=== PATIENT | male | born 1985 | race Caucasian/White ===

== ENCOUNTER 2017-02-01 09:09 | Inpatient (IN) | payer SELFPAY ==
[~2017-02-01] VITALS: Ht 185.4 cm; Wt 63.8 kg
[~2017-02-01 09:09] MED LIST: ATARAX OR; BENZ5TA PO; DEPA250T3 OR; DEPA500T OR; DEPA500T2 PO; LAMI25TA OR; NICO14DI3 TD; NICOTINE 21MG/24HR 1 EA TRANSDERMAL TD SCH; PARO25TAB OR; PAXI20TA OR; PAXI40TA OR; PROP20EL OR; RISP1TAB21 PO; RISP2TAB12 OR; TRAZ100T OR; TRAZ150T OR; ZOLO100T PO; ZYPR10TA OR; no home medications
[2017-02-01] MEDS ORDERED: LORazepam 2 MG TAB PO STA (09:35)
[2017-02-01 10:02] LABS: MEAN CORPUSCULAR HEMOGLOBIN 33.3 pg (27.0-33.0); MEAN CORPUSCULAR HGB CONC 33.5 g/dl (32.0-36.5); MEAN CORPUSCULAR VOLUME 99.3 fl (80.0-96.0); RED CELL DISTRIBUTION WIDTH 12.5 % (11.5-14.5); WHITE BLOOD COUNT 5.6 K/mm3 (4.0-10.0)
[2017-02-01 10:40] LABS: ALBUMIN 4.4 GM/DL (3.2-5.2); ALBUMIN/GLOBULIN RATIO 1.33 (1.00-1.93); ALKALINE PHOSPHATASE 55 U/L (45-117); ALT/SGPT 20 U/L (12-78); ANION GAP 7 MEQ/L (8-16); AST/SGOT 28 U/L (15-37); BILIRUBIN,DIRECT 0.1 MG/DL (0.0-0.2); BILIRUBIN,TOTAL 0.4 MG/DL (0.2-1.0); BLOOD UREA NITROGEN 10 MG/DL (7-18); CALCIUM LEVEL 8.6 MG/DL (8.5-10.1); CARBON DIOXIDE LEVEL 29 MEQ/L (21-32); CHLORIDE LEVEL 109 MEQ/L (98-107); CREATININE FOR GFR 0.83 MG/DL (0.70-1.30); GLOMERULAR FILTRATION RATE > 60.0 (>60); GLUCOSE, FASTING 75 MG/DL (70-105); POTASSIUM SERUM 4.4 MEQ/L (3.5-5.1); SODIUM LEVEL 145 MEQ/L (136-145); TOTAL PROTEIN 7.7 GM/DL (6.4-8.2)
[2017-02-01 10:45] LABS: METHADONE URINE NEGATIVE (NEGATIVE)
[2017-02-01] MEDS ORDERED: OXAZEPAM 15 MG CAP PO ONE (18:15)
[2017-02-01] MEDS ORDERED: LORazepam 2 MG TAB PO PRN (18:30)
[2017-02-01] MEDS ORDERED: traZODone 50 MG TAB PO PRN (18:30)
[2017-02-01] MEDS ORDERED: MOM 30ML SUSPENSION UDC PO PRN (18:30)
[2017-02-01] MEDS ORDERED: ACETAMINOPHEN TAB 650MG DOSE (2X325MG) PO PRN (18:30)
[2017-02-01] MEDS ORDERED: MAALOX 30 ML SUSP *UDC PO PRN (18:30)
[2017-02-01] MEDS ORDERED: THIAMINE 100 MG TAB PO ONE (18:45)
[2017-02-01 20:25] VITALS: BP 128/75
[2017-02-01] MEDS ORDERED: diphenhydrAMINE 50 MG CAP PO PRN (22:30)
[2017-02-02 06:00] VITALS: BP 118/82
[2017-02-02] MEDS ORDERED: hydrOXYzine 50 MG TAB PO PRN ×2 (08:45→11:00)
[2017-02-02] MEDS ORDERED: hydrOXYzine 50 MG TAB PO STA (08:46)
--- NOTE | 2017-02-02 08:49 | HPEPDOC ---
Medical History and Physical Date of Admission Feb 01, 2017 at 18:29 History and Physical PCP: None ATTENDING: Dr. Gene Dyer HPI: 31yoM admitted to [facility] for unspecified depressive disorder, being medically examined today. No acute medical complaints today. Denies any fevers, chills, weakness, fatigue, SUMMERS, CP, SOB, cough, palpitations, abdominal pain, N/V /D or changes in bowel or bladder habits. PMHx: Depression Anxiety H/O Alcohol use/substance use insomnia PSHX: Denies SOCHX: Resides in: [place] Marital Status: single Kids: none Employment: [employer] employee Tobacco use: 1 ppd ETOH: 1-2 beers per day (less since Rehab approx 2 years ago) Illicit Drugs: H/o opiates, marijuana. IV Drug Use: Denies Tattoos done unprofessionally: 1 FAMHX: Mother: Alive, DM, HTN Father: Alive, well Siblings: 2 brothers, 2 sisters Alive, well Children: none Unexpected deaths due to medical reasons: None. ROS: As noted in HPI, otherwise 11pt ROS of systems reviewed and unremarkable. PE: GEN: 31yoM, appears stated age. Well-nourished, well developed. No acute distress. Alert and oriented x 3. Pleasant, interactive. HEENT: Normocephalic, atraumatic. Pupils are equal, round, and reactive to light. Extraocular movements are intact. No nystagmus appreciated. Sclera are nonicteric. Conjunctiva without injection. Nose midline. Nasal turbinates without bogginess. EACs both patent BL. TMs both visualized and kemp with good cone of light, no bulging or erythema. No facial asymmetry. Moist mucous membranes. Dentition fair. Pharynx pink and moist, no cobblestoning. Neck supple , trachea midline. No lymphadenopathy or thyromegaly appreciated. CHEST: Regular rate and rhythm, +S1, +S2 LUNGS: Clear to auscultation bilaterally. No wheezes, rales, or rhonchi. Breathing appears symmetric and easy. Patient is speaking in full sentences. No accessory muscle use. ABD: Round, soft, non-tender, non-distended. +Bowel sounds throughout. No rebound or guarding. No costovertebral angle tenderness. EXT: Pulses 2+ bilaterally dorsalis pedis and radial. No lower extremity edema appreciated. SKIN: [place], dry, warm. Capillary refill <2sec. No rashes. NEURO: Alert and oriented x 3. Cranial nerves III-XII are intact. No focal deficits appreciated. EKG: pending. A&P: 31yoM admitted to [facility] for unspecified depressive disorder, 1. Psych. Plan per Psychiatry. Obtain baseline EKG to assure the safety of psychiatric medications as they can prolong the QT interval. 2. Nicotine dependence. Patch available. 3. Tattoo done unprofessionally. Pt agreeable to HIV/Hepatitis screening. 4. Follow up. No Primary Care Provider. Will attempt to establish PCP on discharge. 5. Substance use. Per Psychiatry. 6. Staff member Florentin present throughout exam. Vital Signs Vital Signs Date Time Temp Pulse Resp B/P (MAP) Pulse Ox O2 Delivery O2 Flow Rate FiO2 02/02/17 06:00 98.8 91 16 118/82 (94) 02/01/17 20:25 96 Room Air Laboratory Data Labs 24H Laboratory Tests 2 02/01/17 09:47: Anion Gap 7L, Glomerular Filtration Rate > 60.0, Calcium Level 8.6, Aspartate Amino Transf (AST/SGOT) 28, Alanine Aminotransferase (ALT/SGPT) 20, Alkaline Phosphatase 55, Total Bilirubin 0.4, Direct Bilirubin 0.1, Total Protein 7.7, Albumin 4.4, Albumin/Globulin Ratio 1.33, Thyroid Stimulating Hormone (TSH) 1.510, Salicylates Level 3.5L, Urine Amphetamines Screen NEGATIVE, Urine Benzodiazepines Screen NEGATIVE, Urine Opiates Screen NEGATIVE, Urine Methadone Screen NEGATIVE, Acetaminophen Level < 2.0L, Urine Barbiturates Screen NEGATIVE , Urine Phencyclidine Screen NEGATIVE, Urine Cocaine Metabolite Screen NEGATIVE , Urine Cannabinoids Screen POSITIVEH, Ethyl Alcohol Level 0.367H 02/01/17 16:00: Ethyl Alcohol Level 0.160H CBC/BMP Laboratory Tests 02/01/17 09:47 Red Blood Count 5.02, Mean Corpuscular Volume 99.3 H, Mean Corpuscular Hemoglobin 33.3 H, Mean Corpuscular Hemoglobin Concent 33.5, Red Cell Distribution Width 12.5 Home Medications No Active Prescriptions or Reported Meds Allergies Coded Allergies: No Known Drug Allergy (Verified Allergy, Unknown, 11/14/12) Maya Wadsworth Feb 02, 2017 08:49
[2017-02-02] MEDS ORDERED: ESCITALOPRAM OXALATE 10 MG TAB (LEXAPRO) PO SCH (09:00)
[2017-02-02] MEDS ORDERED: OLANZapine 5 MG TAB PO SCH (09:00)
[2017-02-02] MEDS: THIAMINE 100 MG TAB PO SCH ×2 (09:01→20:30)
[2017-02-02] MEDS: FOLIC ACID 1 MG TAB PO SCH (09:01)
[2017-02-02] MEDS: NICOTINE 21MG/24HR 1 EA TRANSDERMAL TD SCH (09:01)
[2017-02-02] MEDS: MULTIVITAMINS/MINERALS THERAP 1 TAB PO SCH (09:01)
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
[2017-02-02 18:00] VITALS: BP 142/86
[2017-02-02] MEDS ORDERED: OXAZEPAM 15 MG CAP PO ONE (18:00)
[2017-02-02] MEDS ORDERED: RAMELTEON 8 MG TAB (ROZEREM) PO SCH (21:00)
[2017-02-03 06:23] VITALS: BP 123/89
[2017-02-03] MEDS: SERTRALINE HCL 50 MG TAB PO SCH (08:29)
[2017-02-03] MEDS: FOLIC ACID 1 MG TAB PO SCH (08:29)
[2017-02-03] MEDS: NICOTINE 21MG/24HR 1 EA TRANSDERMAL TD SCH (08:29)
[2017-02-03] MEDS: MULTIVITAMINS/MINERALS THERAP 1 TAB PO SCH (08:29)
[2017-02-03] MEDS: THIAMINE 100 MG TAB PO SCH ×2 (08:29→20:34)
[2017-02-03] MEDS: OLANZapine 5 MG TAB PO PRN ×3 (10:35→20:34)
[2017-02-03 12:00] VITALS: BP 125/88
[2017-02-03 18:28] VITALS: BP 129/84
[2017-02-03] MEDS ORDERED: QUEtiapine FUMARATE 100 MG TAB PO SCH (21:00)
--- NOTE | 2017-02-04 00:18 | IPN ---
DATE: 02/03/2017 Evaluated 31-year-old male known for borderline personality disorder, major depressive disorder and alcohol and marijuana use disorder. The patient was admitted to the inpatient mental health unit because he stated that he wanted to kill himself and he called a co-worker, this co-worker called the police, the police picked him up and brought him into the emergency room. In the emergency room (ER), he was found to be intoxicated with alcohol and he admitted that he had been drinking the whole day before he was brought in. The patient has a long standing history of substance abuse, psychiatric disorder and previous admissions to the inpatient mental health unit, being the last one in 2012 when he was diagnosed as having impulse control disorder and substance abuse. His vital signs were stable today. There were no new lab results. CURRENT MEDICATIONS: He is on Abilify, Rozerem 8 mg by mouth at bedtime (q.h.s.), but he stated that he did not feel that it was working, so he was placed on the quetiapine 100 mg by mouth at bedtime (q.h.s.) for insomnia and he has Zyprexa 5 mg by mouth every 4 hours as needed for anxiety and agitation and besides he is on CIWA protocol. MENTAL STATUS EXAMINATION: The patient is a 31-year-old male who is alert, oriented times three, cooperative with interview and pleasant with good eye contact, dressed in hospital clothes wearing a elisabet because he states he feels very cold. Speech is fluent, not tangential and not circumstantial. Language skills are fair. Thought process is linear, logical. Thought content is goal directed. Abstract reasoning and computation are fair. Description of associations. There is no loosening of associations. Judgment poor. Insight poor. Orientation: He is oriented times three. Recent and remote memory are fair. Attention and concentration are fair. Language: Normal, fluent. Fund of knowledge: Fair. Mood: "I still get very angry". Affect is labile. He goes from sadness to anger to laughter. DIAGNOSES: 1. Borderline personality disorder. 2. Major depressive disorder with suicidal ideation. 3. Marijuana and alcohol use disorder. 4. Unspecified trauma. ASSESSMENT: The patient is still very depressed, but at least he laughs a little bit more. He is less angry than yesterday. He reported today that he felt very angry after he talked to his mother over the phone and they got into an argument. After this incident, he requested a as needed medication, Zyprexa 5 mg and he said that even though he helped him calm down, he felt that he was still very angry. This abstract writer reassured him that with more use of this medications and letting them enough time to work, he will feel more relieved. The patient has multiple social problems because he has no social or family support. He has no insurance coverage. According to the patient, he spoke with his boss last night and he told him that he was going to be covered with the work insurance. He says that at least this gives him a little bit of hope, although he knows that he is going to be tighter economically speaking. MANAGEMENT PLAN: He will continue to be on the same medications: Seroquel 100 mg by mouth at bedtime (q.h.s.) because he says that trazodone does not work for him and last night that he took Rozerem 8 mg by mouth at bedtime (q.h.s.) he kept tossing, turning and waking up. Once he becomes more stable, Seroquel will be discontinued because it is not good for him to be on three different anti psychotic medications.He is on Zyprexa as needed for anxiety and agitation because of his substance use disorder and this abstract writer did not want to give him Ativan for that reason and because he has anger problems,this abstract writer thought that Zyprexa could help him control anxiety and anger. TIME SPENT: 40 minutes. ROYA
--- NOTE | 2017-02-04 00:53 | ECGEPIP ---
Stationary ECG Study [facility] Test Date: 2017-02-02 Pat Name: CARLOS MURPHY Department: Room: [place] [address] Gender: M Surgical Services Assistant: ANUP : 1985 Requested By: Maya Wadsworth Order Number: [id number] Reading MD: Aly Peralta Measurements Intervals [place] Rate: 62 P: 45 MT: 138 QRS: 59 QRSD: 88 T: 73 QT: 394 QTc: 402 Interpretive Statements SINUS RHYTHM ST ELEVATION, PROBABLY EARLY REPOLARIZATION Compared to the last tracing on 08/02/2013 at 15:05:04 Electronically Signed On 02-04-2017 0:52:49 EDT by Aly Peralta
[2017-02-04 06:25] VITALS: BP 132/95
[2017-02-04] MEDS: SERTRALINE HCL 50 MG TAB PO SCH (08:09)
[2017-02-04] MEDS: MULTIVITAMINS/MINERALS THERAP 1 TAB PO SCH (08:10)
[2017-02-04] MEDS: FOLIC ACID 1 MG TAB PO SCH (08:10)
[2017-02-04] MEDS: THIAMINE 100 MG TAB PO SCH (08:10)
[2017-02-04] MEDS: NICOTINE 21MG/24HR 1 EA TRANSDERMAL TD SCH (08:11)
[2017-02-04] MEDS ORDERED: hydrOXYzine 50 MG TAB PO PRN (12:00)
[2017-02-04] MEDS: risperiDONE 1 MG TAB PO SCH ×2 (12:27→21:45)
[2017-02-04 18:00] VITALS: BP 128/81
[2017-02-04] MEDS: diphenhydrAMINE 50 MG CAP PO SCH (21:45)
--- NOTE | 2017-02-05 01:54 | IPN ---
DATE OF SERVICE: 02/04/2017 A 31-year-old male with history of borderline personality disorder, major depressive disorder, marijuana and alcohol use disorder. Patient reported today that he was extremely angry yesterday with his mother after he spoke to her on the phone and then he received her visit during the night, but he says that his visit went well with his father and he feels supported by him and by his paternal side of the family. Patient reported that despite he received medication last night for sleep which was Seroquel 100 mg by mouth nightly, he kept tossing, turning and was not able to sleep just like the night before. He expressed his concerns about his insurance because high school social studies teacher explained that he will not be able to have insurance from his job until his enrollment that it will be after this year of work and he expressed his surprise about this because he said he had spoken with his boss yesterday and he had reassured him that he will have insurance. For that reason, his medications had to be changed today and Abilify was discontinued because most likely he will not be able to afford that medication and instead he was started on Risperdal 1 mg twice a day because this medication is more affordable and he will be able to get it for a cheaper rodriguez if he is not covered by any insurance. Olanzapine or Zyprexa was also discontinued because he will probably also have problems picking up his medication and buying these medications and for that reason he was started on a different medication for anxiety and agitation, which is Atarax 50 mg by mouth every 6 hours as needed for anxiety and agitation. Since he is receiving Risperdal, he was started also on Benadryl 50 mg by mouth nightly, which will help him in case he will develop extrapyramidal side effects and it will help him also with sleep. He continues with sertraline, but this one was decreased to 25 mg by mouth daily because the patient has some bipolar traits and it could be that sertraline is activating jesse in him, for that reason the medication was decreased. He expressed that he got upset with his mother during the visit last night, but after that he was able to relax and he went to sleep. He was able to sleep for a little while and then he got up and woke up several times. He reports that he is feeling a little bit less depressed, that he has been attending groups and he has found them very useful, that he has been interacting with peers and staff and he feels that he is receiving the help that was lacking in his life. It helped him the support that he needed. MENTAL STATUS EXAMINATION: He was alert, oriented times three, dressed in hospital clothes, wearing glasses, with good eye contact, good hygiene. His speech is normal, not tangential and not circumstantial. His thought process is coherent. His thought content is goal directed. Abnormal or psychotic thoughts: He denies suicidal ideation, denies auditory and visual hallucinations. Denies paranoid or bizarre thought delusions. His attention and concentration are fair. His remote and recent memory are intact. He is oriented times three, his insight and judgment are improving. His language is fair, his mood and affect are brighter today. ASSESSMENT: Patient has improved since he was admitted, he has a brighter mood and affect, he laughs, he interacts, he has better eye contact than before, he is less angry. He has gone through several medication adjustments today because of his insurance problems and if these medications were not adjusted, he will have had problems upon discharge on being able to buy them. Patient will be continued under close observation and hopefully he will stabilize so that he will be able to go back to work because he is worried about losing his job. Will followup.
[2017-02-05 06:30] VITALS: BP 155/97
[2017-02-05] MEDS: risperiDONE 1 MG TAB PO SCH ×3 (08:30→21:00)
[2017-02-05] MEDS: FOLIC ACID 1 MG TAB PO SCH (08:30)
[2017-02-05] MEDS: MULTIVITAMINS/MINERALS THERAP 1 TAB PO SCH (08:30)
[2017-02-05] MEDS: NICOTINE 21MG/24HR 1 EA TRANSDERMAL TD SCH (08:31)
[2017-02-05] MEDS ORDERED: SERTRALINE HCL 50 MG TAB PO SCH (09:00)
[2017-02-05] MEDS: hydrOXYzine 50 MG TAB PO PRN ×2 (15:59→21:00)
[2017-02-05 18:00] VITALS: BP 121/78
[2017-02-05] MEDS: diphenhydrAMINE 50 MG CAP PO SCH (21:00)
--- NOTE | 2017-02-05 23:09 | MHIPNPDOC ---
[facility] Progress Note Progress Note DATE OF SERVICE: 02/05/17 HISTORY: 31 year old male with history of Borderline Personality Disorder, Unspecified Bipolar Disorder, alcohol and Marijuana Use Disorder who has had a good response to Risperdal and Atarax. VITAL SIGNS: See below. NEW TEST RESULTS: No new test results CURRENT MEDICATIONS: See below. MENTAL STATUS EXAMINATION: Patient is a 31-year old male, who is alert, cooperative, pleasant. Speech: Is normal, a little rapid. Language skills are fair. Thought processes including: intact. Thought content: he has anxious thoughts about going back to work and about his health insurance Abstract reasoning, and computation: Fair. Description of associations: Not loose. Description of abnormal or psychotic thoughts: Denies suicidal ideation, denies homicidal ideation, denies auditory and visual hallucinations and denies delusional thoughts. Judgment: Improving Insight: Improving. Orientation: Oriented x 3. Recent and remote memory: Intact. Attention span and concentration: Fair. Language: Fair. Fund of knowledge: Adequate. Mood: "I feel much better". Affect: Reactive, appropriate, full range. Mood congruent. DIAGNOSES: 1. Borderline Personality Disorder. 2. Unspecified Bipolar Disorder. 3. Alcohol and marijuana use disorder. ASSESSMENT:patient has improved, will observe closely over the weekend. If he remains stable, could be discharged on Wednesday. MANAGEMENT PLAN: Needs to continue at the [facility] until he remains stable. TIME SPENT: 30 minutes. Vital Signs Vital Signs Date Time Temp Pulse Resp B/P (MAP) Pulse Ox O2 Delivery O2 Flow Rate FiO2 02/05/17 18:00 99.3 124 16 121/78 (92) 02/03/17 06:23 Room Air 02/01/17 20:25 96 Current Medications Current Medications Acetaminophen (Tylenol Tab) 650 mg Q6HP PRN PO HEADACHE or DISCOMFORT; Start at 18:30; Stop 03/03/17 at 18:29 Al Hydrox/Mg Hydrox/Simethicone (Mylanta) 30 ml Q4HP PRN PO HEARTBURN/ INDIGESTION; Start 02/01/17 at 18:30; Stop 03/03/17 at 18:29 Aripiprazole (AbiLIFY) 5 mg BID PO Last administered on 02/04/17t 08:09; Start 02/02/17 at 21:00; Stop 02/04/17 at 10:54; Status DC Diphenhydramine HCl (Benadryl) 50 mg QHS PO Last administered on 02/05/17 21: 00; Start 02/04/17 at 21:00; Stop 03/06/17 at 20:59 Diphenhydramine HCl (Benadryl) 50 mg QHSP PRN PO INSOMNIA Last administered on 02/01/17 22:29; Start 02/01/17 at 22:30; Stop 02/02/17 at 09:38; Status DC Escitalopram Oxalate (Lexapro) 20 mg DAILY PO Last administered on 02/02/17 09 :01; Start 02/02/17 at 09:00; Stop 02/02/17 at 10:31; Status DC Folic Acid (Folic Acid) 1 mg DAILY PO Last administered on 02/05/17 08:30; Start 02/02/17 at 09:00; Stop 03/04/17 at 08:59 Home Med (Med Rec Complete!) ASDIRECTED XX ; Start 02/01/17 at 19:00; Stop at 19:08; Status DC Hydroxyzine HCl (Atarax) 50 mg Q4HP PRN PO ANXIETY Last administered on 21:00; Start 02/05/17 at 12:00; Stop 03/06/17 at 11:59 Hydroxyzine HCl (Atarax) 50 mg Q6HP PRN PO ANXIETY; Start 02/02/17 at 08:45; Stop 03/04/17 at 08:44; Status Cancel Hydroxyzine HCl (Atarax) 50 mg Q6HP PRN PO ANXIETY; Start 02/02/17 at 11:00; Stop 03/04/17 at 10:59; Status UNV Hydroxyzine HCl (Atarax) 50 mg Q6HP PRN PO ANXIETY Last administered on 15:34; Start 02/04/17 at 12:00; Stop 02/05/17 at 10:15; Status DC Hydroxyzine HCl (Atarax) 50 mg STAT STAT PO Last administered on 02/02/17 09: 01; Start 02/02/17 at 08:46; Stop 02/02/17 at 08:53; Status DC Lorazepam (Ativan) 2 mg ASDIRECTED PRN PO SEE PROTOCOL Last administered on 20:26; Start 02/01/17 at 18:30; Stop 02/08/17 at 18:29 Lorazepam (Ativan) 2 mg STAT STAT PO Last administered on 02/01/17 09:42; Start 02/01/17 at 09:35; Stop 02/01/17 at 09:36; Status DC Magnesium Hydroxide (Milk Of Magnesia) 30 ml DAILYPRN PRN PO CONSTIPATION; Start 02/01/17 at 18:30; Stop 03/03/17 at 18:29 Multivitamins (Theragram-M) 1 tab DAILY PO Last administered on 02/05/17 08:30 ; Start 02/02/17 at 09:00; Stop 03/04/17 at 08:59 Nicotine (Nicoderm Cq 21mg) 1 patch DAILY TD ; Start 02/01/17 at 09:00; Stop at 22:22; Status DC Nicotine (Nicoderm Cq 21mg) 1 patch DAILY TD Last administered on 02/05/17 08: 31; Start 02/02/17 at 09:00; Stop 03/04/17 at 08:59 Olanzapine (ZyPREXA) 5 mg BID PO Last administered on 02/02/17 10:51; Start at 09:00; Stop 02/02/17 at 10:58; Status DC Olanzapine (ZyPREXA) 5 mg Q4HP PRN PO ANXIETY/AGITATION Last administered on 20:34; Start 02/03/17 at 09:00; Stop 02/04/17 at 10:56; Status DC Quetiapine Fumarate (SEROquel) 100 mg QHS PO Last administered on 02/03/17 20: 34; Start 02/03/17 at 21:00; Stop 02/04/17 at 10:53; Status DC Ramelteon (Rozerem) 8 mg QHS PO Last administered on 02/02/17 20:29; Start at 21:00; Stop 02/03/17 at 15:11; Status DC Risperidone (RisperDAL) 1 mg BID PO Last administered on 02/05/17 08:30; Start 02/04/17 at 09:00; Stop 02/05/17 at 10:16; Status DC Risperidone (RisperDAL) 1 mg TID PO Last administered on 02/05/17 21:00; Start 02/05/17 at 16:00; Stop 03/06/17 at 08:59 Sertraline HCl (Zoloft) 12.5 mg DAILY PO ; Start 02/06/17 at 09:00; Stop at 08:59 Sertraline HCl (Zoloft) 25 mg DAILY PO Last administered on 02/05/17 08:30; Start 02/05/17 at 09:00; Stop 02/05/17 at 10:14; Status DC Sertraline HCl (Zoloft) 50 mg DAILY PO Last administered on 02/04/17 08:09; Start 02/03/17 at 09:00; Stop 02/04/17 at 10:37; Status DC Thiamine HCl (Thiamine HCl) 100 mg BID PO Last administered on 02/04/17 08:10 ; Start 02/02/17 at 09:00; Stop 02/04/17 at 09:01; Status DC Trazodone HCl (Desyrel) 50 mg QHSP PRN PO INSOMNIA; Start 02/01/17 at 18:30; Stop 02/01/17 at 22:20; Status DC Allergies Coded Allergies: No Known Drug Allergy (Verified Allergy, Unknown, 11/14/12) DONALD CHING MD Feb 05, 2017 23:09
[2017-02-06 06:00] VITALS: BP 140/96
[2017-02-06] MEDS: MULTIVITAMINS/MINERALS THERAP 1 TAB PO SCH (08:26)
[2017-02-06] MEDS: risperiDONE 1 MG TAB PO SCH ×3 (08:26→20:03)
[2017-02-06] MEDS: FOLIC ACID 1 MG TAB PO SCH (08:27)
[2017-02-06] MEDS: hydrOXYzine 50 MG TAB PO PRN ×2 (08:27→13:12)
[2017-02-06] MEDS: SERTRALINE HCL 25 MG TABLET PO SCH (08:29)
[2017-02-06] MEDS: NICOTINE 21MG/24HR 1 EA TRANSDERMAL TD SCH (08:29)
[2017-02-06 18:00] VITALS: BP 128/83
[2017-02-06] MEDS: diphenhydrAMINE 50 MG CAP PO SCH (20:03)
[2017-02-07 06:00] VITALS: BP 134/86
[2017-02-07] MEDS: NICOTINE 21MG/24HR 1 EA TRANSDERMAL TD SCH (08:12)
[2017-02-07] MEDS: SERTRALINE HCL 25 MG TABLET PO SCH (08:13)
[2017-02-07] MEDS: risperiDONE 1 MG TAB PO SCH ×3 (08:13→21:19)
[2017-02-07] MEDS: FOLIC ACID 1 MG TAB PO SCH (08:13)
[2017-02-07] MEDS: hydrOXYzine 50 MG TAB PO PRN ×3 (08:13→20:01)
[2017-02-07] MEDS: MULTIVITAMINS/MINERALS THERAP 1 TAB PO SCH (08:13)
[2017-02-07 18:00] VITALS: BP 139/92
[2017-02-07] MEDS: diphenhydrAMINE 50 MG CAP PO SCH (21:19)
[2017-02-08 06:24] VITALS: BP 149/79
[2017-02-08] MEDS: hydrOXYzine 50 MG TAB PO PRN (08:06)
[2017-02-08] MEDS: SERTRALINE HCL 25 MG TABLET PO SCH (08:06)
[2017-02-08] MEDS: FOLIC ACID 1 MG TAB PO SCH (08:06)
[2017-02-08] MEDS: risperiDONE 1 MG TAB PO SCH (08:06)
[2017-02-08] MEDS: MULTIVITAMINS/MINERALS THERAP 1 TAB PO SCH (08:06)
[2017-02-08 08:09] VITALS: BP 131/88
[2017-02-08] MEDS: NICOTINE 21MG/24HR 1 EA TRANSDERMAL TD SCH (09:00)
[2017-02-08] MEDS ORDERED: RISP1TAB41 PO (09:55)
[2017-02-08] MEDS ORDERED: DIPH50CA PO (09:55)
[2017-02-08] MEDS ORDERED: NICO21PAT TD (09:55)
[2017-02-08] MEDS ORDERED: SERT25TA PO (09:55)
[2017-02-08] MEDS ORDERED: HYDR-4274 PO (09:58)
[2017-02-08] MEDS ORDERED: hydrOXYzine 50 MG TAB PO SCH (12:00)
--- NOTE | 2017-02-09 10:51 | DSES ---
DATE OF ADMISSION: 02/01/2017 DATE OF DISCHARGE: 02/08/2017 DISCHARGE DIAGNOSES: 1. Borderline personality disorder. 2. Major depressive disorder, moderate, recurrent. 3. Alcohol and marijuana use disorder. REASON FOR ADMISSION: Patient was brought to the emergency room while under the influence of alcohol and he had verbalized that he wanted to kill himself. Patient says that he has had multiple psychosocial stressors including work related issues, financial strains, transportation problems, and a history of legal problems that has been like the reason of why he is so depressed these days. Two years ago approximately, he had a DWI and he lost his license because of that and for that reason, he has not been able to drive a car so he has to use his bicycle everyday to go to work and pay his neighbor 20 to 30 dollars for the ride. He recently lost one of the tires, got a flat tire and has not been able to repair his bike. This was the trigger exactly that brought him down to depression. Patient has had previous history of alcohol use disorder, marijuana use disorder, and on a previous hospitalization in 2010 it was stated that he also had a problem with opioids. Patient has responded to treatment and he has been treated with Risperdal because it was considered that he has borderline personality disorder and he needed a mood stabilizer and he needed to control his impulses because he has been harming himself by burning his arm and his hand. 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 As it was stated before, he was placed on Risperdal 1 mg by mouth three times daily and he has been receiving hydroxyzine 50 mg by mouth every 6 hours for anxiety or agitation, he received a nicotine patchy of 21 mg in 24 hours one patch a day for smoking cessation and recently sertraline was added at 12.5 mg by mouth daily. Patient was not a stable protocol because he was withdrawing from alcohol when he was admitted. Patient had a very good response to this combination of medications and was discharged today. He received a letter for him to hand it to his boss so that they could see that he had been hospitalized. His father was contacted and his mother and today there was a family meeting with his father and his father was able to realize that his son has much more than a substance use disorder, that he has been depressed and has personality disorder due to the rough childhood that he had to endure. At the time of discharge, the patient was stable, he did not endorse any suicidal or homicidal ideation, not psychotic thoughts, denied auditory and visual hallucinations, and denied delusional thoughts. His mood and effect were euthymic, he was alert and oriented times three with an intact thought process and coherent thought content. His attention, concentration, memory were good. Insight and judgment have improved. Impulse control was normal. The patient has received instructions to followup as an outpatient and receive psychotherapy and medications at the following facilities: He is going to followup for [facility] and walk in hours for [facility] addictions. Patient was discharged, his father came to pick him up and he was satisfied with his followup appointments, he is willing to quit drinking and smoking marijuana and he is goal directed. He wants to improve and get better.
== END 2017-02-08 11:30 | disposition home or self-care (01) | DRG 752 ==
LOC: M ED 10:03 → M ED INP 18:29 → M PSY 20:24
PROVIDERS: ADMIT Psychiatry & Neurology Psychiatry; ATTEND Psychiatry & Neurology Psychiatry
DX: F60.3 Borderline personality disorder (principal); F10.129 Alcohol abuse with intoxication, unspecified; F33.1 Major depressive disorder, recurrent, moderate; G47.00 Insomnia, unspecified; F17.210 Nicotine dependence, cigarettes, uncomplicated; F12.10 Cannabis abuse, uncomplicated; Z91.5 Personal history of self-harm

== ENCOUNTER 2018-11-10 14:21 | Inpatient (IN) | payer BC, SELFPAY ==
[~2018-11-10] VITALS: Ht 185.4 cm; Wt 64.1 kg
[~2018-11-10 14:21] MED LIST changes: +DIPH50CA PO; +HYDR50TA70 PO; +NICO21PAT TD; -NICOTINE 21MG/24HR 1 EA TRANSDERMAL TD SCH; +RISP1TAB42 PO; +SERT25TA85 PO
[2018-11-10] MEDS ORDERED: LORazepam 2 MG TAB PO PRN (15:30)
[2018-11-10] MEDS ORDERED: ADACEL/BOOSTRIX VACCINE (DIPHTH/PERTUSS/ACELL/TETANUS)0.5ML SYR (90715) IM ONE (15:30)
[2018-11-10 16:03] LABS: HEMATOCRIT 47.8 % (42.0-52.0); HEMOGLOBIN 16.1 g/dl (13.5-17.5); MEAN CORPUSCULAR HEMOGLOBIN 33.5 pg (27.0-33.0); MEAN CORPUSCULAR HGB CONC 33.7 g/dl (32.0-36.5); MEAN CORPUSCULAR VOLUME 99.6 fl (80.0-96.0); PLATELET COUNT, AUTOMATED 227 10^3/uL (150-450); WHITE BLOOD COUNT 10.3 10^3/uL (4.0-10.0)
[2018-11-10 16:27] LABS: AMPHETAMINES LEVEL URINE NEGATIVE (NEGATIVE); BARBITURATES URINE NEGATIVE (NEGATIVE); BENZODIAZEPINES URINE NEGATIVE (NEGATIVE); CANNABINOIDS URINE POSITIVE (NEGATIVE); COCAINE METABOLITE URINE NEGATIVE (NEGATIVE); METHADONE URINE NEGATIVE (NEGATIVE); OPIATES URINE NEGATIVE (NEGATIVE); PHENCYCLIDINE URINE NEGATIVE (NEGATIVE)
[2018-11-10 16:41] LABS: ACETAMINOPHEN LEVEL < 2.0 UG/ML (10.0-30.0); ALBUMIN 4.5 GM/DL (3.2-5.2); ALT/SGPT 31 U/L (12-78); BILIRUBIN,DIRECT < 0.1 MG/DL (0.0-0.2); BILIRUBIN,TOTAL 0.2 MG/DL (0.2-1.0); BLOOD UREA NITROGEN 9 MG/DL (7-18); CALCIUM LEVEL 8.1 MG/DL (8.5-10.1); CARBON DIOXIDE LEVEL 23 MEQ/L (21-32); CHLORIDE LEVEL 112 MEQ/L (98-107); CREATININE FOR GFR 0.85 MG/DL (0.70-1.30); ETHYL ALCOHOL (ETHANOL) 0.299 % (0.000-0.010); GLOMERULAR FILTRATION RATE > 60.0 (>60); GLUCOSE, FASTING 75 MG/DL (70-100); SALICYLATE LEVEL 5.6 MG/DL (5.0-30.0); SODIUM LEVEL 145 MEQ/L (136-145); THYROID STIMULATING HORMONE 0.728 uIU/ML (0.358-3.740); TOTAL PROTEIN 7.6 GM/DL (6.4-8.2)
[2018-11-10] MEDS: THIAMINE 100 MG TAB PO SCH (17:30)
[2018-11-10] MEDS: MULTIVITAMINS/MINERALS THERAP 1 TAB PO SCH (17:30)
[2018-11-10] MEDS: FOLIC ACID 1 MG TAB PO SCH (17:30)
[2018-11-10] MEDS ORDERED: THIAMINE 100 MG TAB PO SCH (21:00)
[2018-11-11] MEDS ORDERED: traZODone 50 MG TAB PO PRN (13:00)
[2018-11-11] MEDS ORDERED: MOM 30ML SUSPENSION UDC PO PRN (13:00)
[2018-11-11] MEDS ORDERED: ACETAMINOPHEN TAB 650MG DOSE (2X325MG) PO PRN (13:00)
[2018-11-11] MEDS ORDERED: IBUPROFEN 400 MG TAB PO PRN (13:00)
[2018-11-11] MEDS: FOLIC ACID 1 MG TAB PO SCH (13:49)
[2018-11-11] MEDS: THIAMINE 100 MG TAB PO SCH ×2 (13:49→22:32)
[2018-11-11] MEDS: NICOTINE 21MG/24HR 1 EA TRANSDERMAL TD SCH (13:49)
[2018-11-11] MEDS: MULTIVITAMINS/MINERALS THERAP 1 TAB PO SCH (13:49)
[2018-11-11 14:23] VITALS: BP 150/95
[2018-11-11 18:00] VITALS: BP 133/88
--- NOTE | 2018-11-11 18:23 | REP ---
Clinical: Trauma. Technique: AP, lateral, bilateral oblique views left hand . Findings: The osseous structures and joint spaces are intact and normal. There is no evidence for acute fracture or dislocation. Surrounding soft tissues are unremarkable. No subcutaneous emphysema or radiodense foreign body. Impression: No acute fracture or dislocation. Electronically Signed by Fritz Nielsen MD 11/11/2018 06:14 P
[2018-11-12 08:00] VITALS: BP 119/78
[2018-11-12] MEDS ORDERED: LORazepam 2 MG TAB PO STA (08:22)
[2018-11-12] MEDS: NICOTINE 21MG/24HR 1 EA TRANSDERMAL TD SCH (08:36)
[2018-11-12] MEDS: MULTIVITAMINS/MINERALS THERAP 1 TAB PO SCH (08:36)
[2018-11-12] MEDS: THIAMINE 100 MG TAB PO SCH ×2 (08:36→21:09)
[2018-11-12] MEDS: FOLIC ACID 1 MG TAB PO SCH (08:36)
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
[2018-11-12] MEDS: VENLAFAXINE 37.5 MG TAB PO SCH (12:35)
[2018-11-12 16:00] VITALS: BP 120/68
[2018-11-12 18:36] VITALS: BP 120/68
[2018-11-12 19:42] VITALS: BP 118/68
[2018-11-12] MEDS: BACITRACIN OINT 30GM TOP SCH (21:00)
[2018-11-12] MEDS ORDERED: OLANZapine 10 MG TAB PO SCH (21:00)
[2018-11-12] MEDS ORDERED: QUEtiapine FUMARATE 50 MG TAB PO SCH (21:00)
[2018-11-13 06:41] VITALS: BP 99/67
[2018-11-13 08:00] VITALS: BP 99/67
[2018-11-13] MEDS: NICOTINE 21MG/24HR 1 EA TRANSDERMAL TD SCH (08:59)
[2018-11-13] MEDS: VENLAFAXINE 37.5 MG TAB PO SCH (08:59)
[2018-11-13] MEDS: THIAMINE 100 MG TAB PO SCH (08:59)
[2018-11-13] MEDS: FOLIC ACID 1 MG TAB PO SCH (08:59)
[2018-11-13] MEDS: MULTIVITAMINS/MINERALS THERAP 1 TAB PO SCH (08:59)
[2018-11-13] MEDS: BACITRACIN OINT 30GM TOP SCH ×2 (09:00→21:00)
--- NOTE | 2018-11-13 15:15 | MHIPNPDOC ---
[facility] Progress Note Progress Note DATE OF SERVICE: 11/13/18 HISTORY: CHIEF COMPLAINT: "i want to give up" HISTORY OF PRESENT ILLNESS: Patient is a 33-year-old male, who according to ED reports: "Reason for Referral Pt called hotline and expressed SI, has prior psych hx and admissions to [facility]. Chief Complaint Pt has hx of depression, sattes he was at work yesterday and was feeling hopeless "about everything in my life", so he cut self on his arm. Pt was sent home from work and started to drink, called suicide hotline and expressed SI with plans to shoot self or run out into traffic. Pt also stated he was thinking of "suicide by helicopter repairer" for when the Police would respond to his home, adds that he has had several instances of SI in past with thoughts of shooting self. Pt is vague/guarded about stressors, repeats "everything in my life", currently lives alone, has mother nearby for support. Pt denies HI, denies AH/VH, admits to occasional cannabis and usually drinks "a beer after work every day", admits he drank more than usual yesterday due to his depression. [facility], no longer taking medications, c/o poor sleep/concentration. Pt is clinically sober at tgis time, continues to voice feeling depressed/hopeless with SI." VITAL SIGNS: See below. NEW TEST RESULTS: See below CURRENT MEDICATIONS: See below. MENTAL STATUS EXAMINATION: General appearance: Patient is a 31-year old male, who is alert, cooperative with interview, with good eye contact, dressed in hospital clothes. Speech: Fluent, spontaneous, not circumstantial and not tangential. Thought processes: Intact. Thought content: cognitive distortions, anxious and depressive thoughts. He doesn't think he wants to go back home, he perseveres about that. He would consider moving to [place] because he thinks there are more opportunities here in [place], he thinks he could get a house with his mother if they buy a house together, the commute would be easier. Abstract reasoning and computation: Fair. Description of associations: Not loose. Description of abnormal or psychotic thoughts: He admits to have auditory hallucinations once in a while and reports hearing a voice calling his name but he is not hearing voices at this time. He denies visual hallucinations, denies homicidal ideation but admits suicidal thoughts. Judgment: Poor. Insight: Limited Orientation: Oriented 3. Recent and remote memory: Intact. Attention span and concentration: Fair Fund of knowledge: Adequate. Mood: "I feel very confused at this time" Affect: Depressed, irritable, anxious DIAGNOSES: 1. Borderline personality disorder. 2. Alcohol and marijuana use disorder. 3. Unspecified bipolar disorder. ASSESSMENT: Patient says he tried to hurt himself early this morning and he scratched his arm but then, he realized that he was doing it once again. he says it relieves him immediately but then, the scar becomes a reminder of it, he becomes at that point, more depressed, more anxious, more angry. he says his anxiety have improved, only a little. I will make changes in his medications as follows: Decrease Zyprexa to 5 mgs PO BID, decrease Seroquel to 25 mgs PO QHS, start him on Abilify 2.5 mgs PO BID. last time he could not use Abilify or Zyprexa because his insurance wouldn't cover for it but he has no problems with his insurance at this time. He was advised nt to make major changes/decisions at this time because he is very depressed and confused. he says his mind is racing all the time, he is impulsive, angry, frustrated (he was written up recently at work) and he is thinking about quitting his job and moving into [place] because his mother and his sister live in here and he could feel more supported in this are, plus he would not have the transportation problem that he has where he lives, where he has to ask for rides and people are not always able to do it. MANAGEMENT PLAN: As above TIME SPENT: 30 minutes. Vital Signs Vital Signs Date Time Temp Pulse Resp B/P (MAP) Pulse Ox O2 Delivery O2 Flow Rate FiO2 11/13/18 08:25 Room Air 11/13/18 06:41 97.4 66 12 99/67 (78) 11/11/18 14:23 96 Current Medications Current Medications Acetaminophen (Tylenol Tab) 650 mg Q6HP PRN PO HEADACHE or DISCOMFORT; Start 11/11/18 at 13:00 Bacitracin (Bacitracin Oint) To abraisions on ri... BID TOP Last administered on 11/13/18 09:00; Start 11/12/18 at 21:00 Folic Acid (Folic Acid) 1 mg DAILY PO Last administered on 11/13/18at 08:59; Start 11/10/18 at 09:00 Home Med (Med Rec Complete!) ASDIRECTED XX ; Start 11/11/18 at 12:15; Stop 11/11/18 at 12:17; Status DC Ibuprofen (Advil) 400 mg Q6HP PRN PO PAIN; Start 11/11/18 at 13:00; Status Cancel Lorazepam (Ativan) 2 mg ASDIRECTED PRN PO SEE PROTOCOL; Start 11/10/18 at 15:30 Lorazepam (Ativan) 2 mg STAT STAT PO Last administered on 11/12/18at 08:36; Start 11/12/18 at 08:22; Stop 11/12/18 at 08:24; Status DC Magnesium Hydroxide (Milk Of Magnesia) 30 ml DAILYPRN PRN PO CONSTIPATION; Start 11/11/18 at 13:00 Multivitamins (Theragram-M) 1 tab DAILY PO Last administered on 11/13/18at 08:59; Start 11/10/18 at 09:00 Nicotine (Nicoderm Cq 21mg) 1 patch DAILY TD Last administered on 11/13/18at 08:59; Start 11/11/18 at 09:00 Olanzapine (ZyPREXA) 5 mg Q6HP PRN PO AGITATION; Start 11/12/18 at 12:15 Olanzapine (ZyPREXA) 10 mg QHS PO Last administered on 11/12/18at 21:08; Start 11/12/18 at 21:00 Quetiapine Fumarate (SEROquel) 50 mg QHS PO Last administered on 11/12/18at 21:09; Start 11/12/18 at 21:00 Thiamine HCl (Thiamine HCl) 100 mg BID PO Last administered on 11/13/18at 08:59; Start 11/10/18 at 16:00; Stop 11/13/18 at 09:01; Status DC Thiamine HCl (Thiamine HCl) 100 mg BID PO ; Start 11/10/18 at 21:00; Stop 11/10/18 at 21:00; Status DC Trazodone HCl (Desyrel) 50 mg QHSP PRN PO INSOMNIA Last administered on 3/29/19at 22:32; Start 11/11/18 at 13:00; Stop 11/12/18 at 12:29; Status DC Venlafaxine HCl (Effexor) 37.5 mg DAILY PO Last administered on 11/13/18at 08:59; Start 11/12/18 at 09:00 Allergies Coded Allergies: No Known Allergies (Unverified , 11/10/18) DONALD CHING MD Nov 13, 2018 14:59
[2018-11-13] MEDS ORDERED: diphenhydrAMINE 50 MG CAP PO PRN (15:45)
[2018-11-13 16:00] VITALS: BP 146/81
[2018-11-13] MEDS: OLANZapine 5 MG TAB PO PRN (17:00)
[2018-11-13 18:26] VITALS: BP 146/81
[2018-11-13] MEDS ORDERED: QUEtiapine FUMARATE 25 MG TAB PO SCH (21:00)
[2018-11-13] MEDS ORDERED: OLANZapine 10 MG TAB PO SCH ×2 (21:00)
[2018-11-14 06:48] VITALS: BP 105/73
[2018-11-14 07:11] VITALS: BP 105/73
[2018-11-14] MEDS: FOLIC ACID 1 MG TAB PO SCH (09:00)
[2018-11-14] MEDS: MULTIVITAMINS/MINERALS THERAP 1 TAB PO SCH (09:00)
[2018-11-14] MEDS: NICOTINE 21MG/24HR 1 EA TRANSDERMAL TD SCH (09:00)
[2018-11-14] MEDS: BACITRACIN OINT 30GM TOP SCH ×2 (09:01→21:00)
[2018-11-14] MEDS: VENLAFAXINE 37.5 MG TAB PO SCH (09:01)
[2018-11-14] MEDS: OLANZapine 5 MG TAB PO SCH ×2 (09:01→21:02)
--- NOTE | 2018-11-14 14:52 | MHIPNPDOC ---
[facility] Progress Note Progress Note DATE OF SERVICE: 11/14/18 HISTORY OF PRESENT ILLNESS: Patient is a 33-year-old male, who according to ED reports: "Reason for Referral Pt called hotline and expressed SI, has prior psych hx and admissions to [facility]. Chief Complaint Pt has hx of depression, sattes he was at work yesterday and was feeling hopeless "about everything in my life", so he cut self on his arm. Pt was sent home from work and started to drink, called suicide hotline and expressed SI with plans to shoot self or run out into traffic. Pt also stated he was thinking of "suicide by spectroscopist" for when the Police would respond to his home, adds that he has had several instances of SI in past with thoughts of shooting self. Pt is vague/guarded about stressors, repeats "everything in my life", currently lives alone, has mother nearby for support. Pt denies HI, denies AH/VH, admits to occasional cannabis and usually drinks "a beer after work every day", admits he drank more than usual yesterday due to his depression. Pt quit going to out tx, no longer taking medications, c/o poor sleep/concentration. Pt is clinically sober at tgis time, continues to voice feeling depressed/hopeless with SI." Interval History: Labs and chart reviewed. Reports he feels the "same as yesterday". He has poverty of speech and was seen lying in bed in the afternoon, isolative to his room under his sheets. Today says he's feeling "a little bit better". Says the medications are "somewhat" helpful and that his sleep continues to be poor. Agrees to have seroquel increased from 25 mg to 75 Po QHS for sleep. Says he continues to have racing thoughts, but understands it sometimes takes time for the medications to be effective. Denies any common or rare side effects from the medications, including but not limited to: morning lightheadedness/dizziness when getting up, EPS, NMS, allergies, gastrointestinal disturbances. says appetite is "fine". Says on past has had constipation from medications, but on this admission denies being "bound up". He continues to endorse feelings of anhedonia, anxiety, anger, racing thoughts. denies SI, HI,AVH, paranoia, jesse. VITAL SIGNS: See below. NEW TEST RESULTS: See below CURRENT MEDICATIONS: See below. MENTAL STATUS EXAMINATION: General appearance: Patient is a 31-year old male, who is alert, cooperative with interview, with good eye contact, dressed in hospital clothes. Speech: Fluent, spontaneous, not circumstantial and not tangential. Thought processes: Intact. Thought content: cognitive distortions, anxious and depressive thoughts. He doesn't think he wants to go back home, he perseveres about that. He would consider moving to [place] because he thinks there are more opportunities here in [place], he thinks he could get a house with his mother if they buy a house together, the commute would be easier. Abstract reasoning and computation: Fair. Description of associations: Not loose. Description of abnormal or psychotic thoughts: He admits to have auditory hallucinations once in a while and reports hearing a voice calling his name but he is not hearing voices at this time. He denies visual hallucinations, denies homicidal ideation but admits suicidal thoughts. Judgment: Poor. Insight: Limited Orientation: Oriented 3. Recent and remote memory: Intact. Attention span and concentration: Fair Fund of knowledge: Adequate. Mood: "7/10, very depressed" Affect: mild dysthymia, flat, irritable, anxious DIAGNOSES: 1. Borderline personality disorder. 2. Alcohol and marijuana use disorder. 3. Unspecified bipolar disorder. ASSESSMENT: Patient reports that he continues to have anxiety, racing thoughts and anger, which is incongruent with affect (appears calm and blunted). Does report some improvement on medications and wants to attend groups. Continue Zyprexa to 5 mgs PO BID,continue venlafaxine 75 mg PO daily, increase Seroquel from 25 mgs to 75 mgs PO QHS, continue him on Abilify 2.5 mgs PO BID. MANAGEMENT PLAN: As above TIME SPENT: 15 minutes. Vital Signs Vital Signs Date Time Temp Pulse Resp B/P (MAP) Pulse Ox O2 Delivery O2 Flow Rate FiO2 11/14/18 07:11 72 105/73 11/14/18 06:48 97.7 12 11/13/18 08:25 Room Air 11/11/18 14:23 96 Current Medications Current Medications Acetaminophen (Tylenol Tab) 650 mg Q6HP PRN PO HEADACHE or DISCOMFORT; Start 11/11/18 at 13:00 Aripiprazole (AbiLIFY) 2.5 mg BID PO Last administered on 11/14/18 09:00; Start 11/13/18 at 21:00 Bacitracin (Bacitracin Oint) To abraisions on ri... BID TOP Last administered on 11/14/18 09:01; Start 11/12/18 at 21:00 Diphenhydramine HCl (Benadryl) 50 mg QHSP PRN PO EXTRAPYRAMIDAL SIDE EFFECTS; Start 11/13/18 at 15:45 Folic Acid (Folic Acid) 1 mg DAILY PO Last administered on 11/14/18at 09:00; Start 11/10/18 at 09:00 Home Med (Med Rec Complete!) ASDIRECTED XX ; Start 11/11/18 at 12:15; Stop 11/11/18 at 12:17; Status DC Ibuprofen (Advil) 400 mg Q6HP PRN PO PAIN; Start 11/11/18 at 13:00; Status Cancel Lorazepam (Ativan) 2 mg ASDIRECTED PRN PO SEE PROTOCOL; Start 11/10/18 at 15:30 Lorazepam (Ativan) 2 mg STAT STAT PO Last administered on 11/12/18at 08:36; Start 11/12/18 at 08:22; Stop 11/12/18 at 08:24; Status DC Magnesium Hydroxide (Milk Of Magnesia) 30 ml DAILYPRN PRN PO CONSTIPATION; Start 11/11/18 at 13:00 Multivitamins (Theragram-M) 1 tab DAILY PO Last administered on 11/14/18at 09:00; Start 11/10/18 at 09:00 Nicotine (Nicoderm Cq 21mg) 1 patch DAILY TD Last administered on 11/14/18 09:00; Start 11/11/18 at 09:00 Olanzapine (ZyPREXA) 5 mg BID PO Last administered on 11/13/18at 21:05; Start 11/13/18 at 21:00; Stop 11/14/18 at 08:58; Status DC Olanzapine (ZyPREXA) 5 mg BID PO Last administered on 11/14/18 09:01; Start 11/14/18 at 09:00 Olanzapine (ZyPREXA) 5 mg Q6HP PRN PO AGITATION Last administered on 11/13/18 17:00; Start 11/12/18 at 12:15 Olanzapine (ZyPREXA) 10 mg BID PO ; Start 11/13/18 at 21:00; Stop 11/13/18 at 21:00; Status DC Olanzapine (ZyPREXA) 10 mg QHS PO Last administered on 11/12/18at 21:08; Start 11/12/18 at 21:00; Stop 11/13/18 at 15:05; Status DC Quetiapine Fumarate (SEROquel) 25 mg QHS PO Last administered on 11/13/18at 21:05; Start 11/13/18 at 21:00 Quetiapine Fumarate (SEROquel) 50 mg QHS PO Last administered on 11/12/18at 21:09; Start 11/12/18 at 21:00; Stop 11/13/18 at 15:24; Status DC Thiamine HCl (Thiamine HCl) 100 mg BID PO Last administered on 11/13/18 08:59; Start 11/10/18 at 16:00; Stop 11/13/18 at 09:01; Status DC Thiamine HCl (Thiamine HCl) 100 mg BID PO ; Start 11/10/18 at 21:00; Stop 11/10/18 at 21:00; Status DC Trazodone HCl (Desyrel) 50 mg QHSP PRN PO INSOMNIA Last administered on 11/11/18at 22:32; Start 11/11/18 at 13:00; Stop 11/12/18 at 12:29; Status DC Venlafaxine HCl (Effexor) 37.5 mg DAILY PO Last administered on 11/13/18at 08:59; Start 11/12/18 at 09:00; Stop 11/13/18 at 15:03; Status DC Venlafaxine HCl (Effexor) 75 mg DAILY PO Last administered on 11/14/18at 09:01; Start 11/14/18 at 09:00 Allergies Coded Allergies: No Known Allergies (Unverified , 11/10/18) LINDSEY HAIRSTON PGY-1 Nov 14, 2018 14:28
[2018-11-14 18:00] VITALS: BP 130/84
[2018-11-14] MEDS: QUEtiapine FUMARATE 25 MG TAB PO SCH (21:02)
[2018-11-15 06:36] VITALS: BP 125/87
[2018-11-15 07:39] VITALS: BP 125/87
[2018-11-15] MEDS: VENLAFAXINE 37.5 MG TAB PO SCH (08:26)
[2018-11-15] MEDS: FOLIC ACID 1 MG TAB PO SCH (08:26)
[2018-11-15] MEDS: BACITRACIN OINT 30GM TOP SCH ×2 (08:27→20:17)
[2018-11-15] MEDS: MULTIVITAMINS/MINERALS THERAP 1 TAB PO SCH (08:27)
[2018-11-15] MEDS: OLANZapine 5 MG TAB PO SCH ×2 (08:27→20:17)
[2018-11-15] MEDS: NICOTINE 21MG/24HR 1 EA TRANSDERMAL TD SCH (08:27)
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
[2018-11-15] MEDS: OLANZapine 5 MG TAB PO PRN (12:00)
[2018-11-15 18:00] VITALS: BP 129/89
[2018-11-15] MEDS: QUEtiapine FUMARATE 25 MG TAB PO SCH (21:31)
[2018-11-16 06:39] VITALS: BP 118/72
[2018-11-16] MEDS: VENLAFAXINE 37.5 MG TAB PO SCH (08:41)
[2018-11-16] MEDS: MULTIVITAMINS/MINERALS THERAP 1 TAB PO SCH (08:41)
[2018-11-16] MEDS: OLANZapine 5 MG TAB PO SCH ×2 (08:41→20:11)
[2018-11-16] MEDS: FOLIC ACID 1 MG TAB PO SCH (08:42)
[2018-11-16] MEDS: NICOTINE 21MG/24HR 1 EA TRANSDERMAL TD SCH (08:43)
[2018-11-16] MEDS: BACITRACIN OINT 30GM TOP SCH ×2 (09:47→20:54)
[2018-11-16] MEDS: OLANZapine 5 MG TAB PO PRN (13:15)
--- NOTE | 2018-11-16 13:16 | MHIPNPDOC ---
[facility] Progress Note Progress Note DATE OF SERVICE: 11/16/18 HISTORY OF PRESENT ILLNESS: Patient is a 33-year-old male, who according to ED reports: "Reason for Referral Pt called hotline and expressed SI, has prior psych hx and admissions to [facility]. Chief Complaint Pt has hx of depression, sattes he was at work yesterday and was feeling hopeless "about everything in my life", so he cut self on his arm. Pt was sent home from work and started to drink, called suicide hotline and expressed SI with plans to shoot self or run out into traffic. Pt also stated he was thinking of "suicide by copy messenger" for when the Police would respond to his home, adds that he has had several instances of SI in past with thoughts of shooting self. Pt is vague/guarded about stressors, repeats "everything in my life", currently lives alone, has mother nearby for support. Pt denies HI, denies AH/VH, admits to occasional cannabis and usually drinks "a beer after work every day", admits he drank more than usual yesterday due to his depression. Pt quit going to outpt tx, no longer taking medications, c/o poor sleep/concentration. Pt is clinically sober at tgis time, continues to voice feeling depressed/hopeless with SI." Interval History: Labs and chart reviewed. reports he is feeling "better" today. Says that he will talk to his mother and tonight and says he plans to stay with her rather than his sister. Says he can relate to her since she "has the same problems as me, but has done a 180 electronic data interchange specialist the years". Says appetite is "good" but sleep remains poor not due to noise on the unit. Agrees to increase seroquel from 75 mg to 100 mg PO QHS for sleep. Denies morning dizziness or lightheadedness. Denies SI, HI,AVH, paranoia, jesse. Told him to take agitation medications if feeling angry, anxious or agitated. Says he is improving and will likely re ready to leave in a couple days. 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 VITAL SIGNS: See below. NEW TEST RESULTS: See below CURRENT MEDICATIONS: See below. MENTAL STATUS EXAMINATION: General appearance: Patient is a 31-year old male, who is alert, cooperative with interview, with good eye contact, dressed in hospital clothes. Speech: Fluent, spontaneous, not circumstantial and not tangential. Thought processes: Intact. Thought content: cognitive distortions, anxious and depressive thoughts. He doesn't think he wants to go back home, he perseveres about that. He would consider moving to [place] because he thinks there are more opportunities here in [place], he thinks he could get a house with his mother if they buy a house together, the commute would be easier. Abstract reasoning and computation: Fair. Description of associations: Not loose. Description of abnormal or psychotic thoughts: He admits to have auditory hallucinations once in a while and reports hearing a voice calling his name but he is not hearing voices at this time. He denies visual hallucinations, denies homicidal ideation but admits suicidal thoughts. Judgment: Poor. Insight: Limited Orientation: Oriented 3. Recent and remote memory: Intact. Attention span and concentration: Fair Fund of knowledge: Adequate. Mood: "better" Affect: mild dysthymia, constricted, irritable, anxious, does smile on occasion DIAGNOSES: 1. Unspecified bipolar disorder. 1. Borderline personality disorder. 2. Alcohol and marijuana use disorder. ASSESSMENT: Today denies racing thoughts, endorses improved mood. Pending possible discharge 11/18/18. Attending groups, good appetite. Seroquel increased from 75 mg to 100 mg PO QHS for sleep. Continue Zyprexa to 5 mgs PO BID, continue venlafaxine 75 mg PO daily, continue him on Abilify 2.5 mgs PO BID. Discussed how therapy would be the most beneficial treatment for him, including DBT. Was counselled regarding substance use and continues to endorse goal- oriented behavior. MANAGEMENT PLAN: As above TIME SPENT: 20 minutes. Vital Signs Vital Signs Date Time Temp Pulse Resp B/P (MAP) Pulse Ox O2 Delivery O2 Flow Rate FiO2 11/16/18 06:39 98.7 65 14 118/72 (87) 11/13/18 08:25 Room Air 11/11/18 14:23 96 Current Medications Current Medications Acetaminophen (Tylenol Tab) 650 mg Q6HP PRN PO HEADACHE or DISCOMFORT; Start 11/11/18 at 13:00 Aripiprazole (AbiLIFY) 2.5 mg BID PO Last administered on 11/16/18 08:42; Start 11/13/18 at 21:00 Bacitracin (Bacitracin Oint) To abraisions on ri... BID TOP Last administered on 11/16/18 09:47; Start 11/12/18 at 21:00 Diphenhydramine HCl (Benadryl) 50 mg QHSP PRN PO EXTRAPYRAMIDAL SIDE EFFECTS; Start 11/13/18 at 15:45 Folic Acid (Folic Acid) 1 mg DAILY PO Last administered on 11/16/18 08:42; Start 11/10/18 at 09:00 Home Med (Med Rec Complete!) ASDIRECTED XX ; Start 11/11/18 at 12:15; Stop 11/11/18 at 12:17; Status DC Ibuprofen (Advil) 400 mg Q6HP PRN PO PAIN; Start 11/11/18 at 13:00; Status Cancel Lorazepam (Ativan) 2 mg ASDIRECTED PRN PO SEE PROTOCOL; Start 11/10/18 at 15:30 Lorazepam (Ativan) 2 mg STAT STAT PO Last administered on 11/12/18at 08:36; Start 11/12/18 at 08:22; Stop 11/12/18 at 08:24; Status DC Magnesium Hydroxide (Milk Of Magnesia) 30 ml DAILYPRN PRN PO CONSTIPATION; Start 11/11/18 at 13:00 Multivitamins (Theragram-M) 1 tab DAILY PO Last administered on 11/16/18 08:41; Start 11/10/18 at 09:00 Nicotine (Nicoderm Cq 21mg) 1 patch DAILY TD Last administered on 11/16/18 08:43; Start 11/11/18 at 09:00 Olanzapine (ZyPREXA) 5 mg BID PO Last administered on 11/13/18 21:05; Start 11/13/18 at 21:00; Stop 11/14/18 at 08:58; Status DC Olanzapine (ZyPREXA) 5 mg BID PO Last administered on 11/16/18 08:41; Start 11/14/18 at 09:00 Olanzapine (ZyPREXA) 5 mg Q6HP PRN PO AGITATION Last administered on 11/15/18 12:00; Start 11/12/18 at 12:15 Olanzapine (ZyPREXA) 10 mg BID PO ; Start 11/13/18 at 21:00; Stop 11/13/18 at 21:00; Status DC Olanzapine (ZyPREXA) 10 mg QHS PO Last administered on 11/12/18at 21:08; Start 11/12/18 at 21:00; Stop 11/13/18 at 15:05; Status DC Quetiapine Fumarate (SEROquel) 25 mg QHS PO Last administered on 11/13/18 21:05; Start 11/13/18 at 21:00; Stop 11/14/18 at 14:45; Status DC Quetiapine Fumarate (SEROquel) 50 mg QHS PO Last administered on 11/12/18 21:09; Start 11/12/18 at 21:00; Stop 11/13/18 at 15:24; Status DC Quetiapine Fumarate (SEROquel) 75 mg QHS PO Last administered on 11/15/18 21:31; Start 11/14/18 at 21:00 Thiamine HCl (Thiamine HCl) 100 mg BID PO Last administered on 11/13/18 08:59; Start 11/10/18 at 16:00; Stop 11/13/18 at 09:01; Status DC Thiamine HCl (Thiamine HCl) 100 mg BID PO ; Start 11/10/18 at 21:00; Stop 11/10/18 at 21:00; Status DC Trazodone HCl (Desyrel) 50 mg QHSP PRN PO INSOMNIA Last administered on 11/11/18 22:32; Start 11/11/18 at 13:00; Stop 11/12/18 at 12:29; Status DC Venlafaxine HCl (Effexor) 37.5 mg DAILY PO Last administered on 11/13/18 08:59; Start 11/12/18 at 09:00; Stop 11/13/18 at 15:03; Status DC Venlafaxine HCl (Effexor) 75 mg DAILY PO Last administered on 11/16/18 08:41; Start 11/14/18 at 09:00 Allergies Coded Allergies: No Known Allergies (Unverified , 11/10/18) LINDSEY HAIRSTON PGY-1 Nov 16, 2018 13:16
[2018-11-16 18:00] VITALS: BP 126/88
[2018-11-16] MEDS: QUEtiapine FUMARATE 100 MG TAB PO SCH (22:05)
[2018-11-17 06:40] VITALS: BP 138/91
[2018-11-17] MEDS: PILL CRUSHER/CUTTER 1 EACH XX PRN (08:14)
[2018-11-17] MEDS: VENLAFAXINE 37.5 MG TAB PO SCH (08:19)
[2018-11-17] MEDS: OLANZapine 5 MG TAB PO SCH ×2 (08:20→20:19)
[2018-11-17] MEDS: BACITRACIN OINT 30GM TOP SCH ×2 (08:20→20:20)
[2018-11-17] MEDS: NICOTINE 21MG/24HR 1 EA TRANSDERMAL TD SCH (08:20)
[2018-11-17] MEDS ORDERED: diphenhydrAMINE 50 MG CAP PO PRN (08:30)
--- NOTE | 2018-11-17 10:00 | HPE ---
DATE OF ADMISSION: 11/11/2018 HISTORY OF PRESENT ILLNESS: Please refer to the psychiatric history and evaluation for further details on this admission. This examination and history is intended for medical issues which may need treatment, followup or consultation on this 33-year-old male. PRIMARY CARE PROVIDER: He currently has none. ALLERGIES: No known drug allergies SOCIAL HISTORY: He is single. He has no children. He smokes one pack of cigarettes per day. EtOH: He drinks one to two beers once a week. He states a little more on the weekends two or three. He has been in rehab in the past. The last time 2014. Illicit drugs: He smokes marijuana. He had a history of opiate use many years ago when he was in high school. IV drug use, none. FAMILY HISTORY: Mother is alive with diabetes and hypertension. Father is alive. Siblings: Two brothers, two sisters alive and well. PAST MEDICAL HISTORY: Depression. Anxiety. History of alcohol use. Insomnia. PAST SURGICAL HISTORY: Negative. LABORATORY DATA: White count 10.3, hemoglobin 16.1, hematocrit 47.8, MCV 99.6, MCH 33.5, platelets 227. Sodium 145, potassium 5.0, chloride 112, CO2 23, creatinine 0.85, calcium 8.1, TSH 0.728. Toxicology EtOH when he came to the emergency room on 11/10/2018 was 0.299. Urine was positive for cannabinoids. Recheck at 0443 on 11/11/2018 was less than 0.003. HOME MEDICATIONS: None. REVIEW OF SYSTEMS: No complaint of headache. No blurred or double vision. No fever. No chills. No tinnitus. No hoarseness. No difficulty swallowing. No lightheadedness. No vertigo. Cardiovascular: No complaints of chest pain, shortness of breath, palpitations or edema. Respiratory: No chronic cough. No sputum production. No hemoptysis. No orthopnea. No wheeze. Gastrointestinal (GI): No nausea, vomiting or diarrhea. No hematochezia. No melena. No complaints of abdominal pain. Genitourinary (): No hematuria, dysuria or frequency. Musculoskeletal: No joint redness or swelling. Endocrine: No polyuria, polydipsia or polyphagia. Hematological: No history of anemia. Neurological: No history of seizures, paresthesias or paralysis. Psychological: See psychiatric history of present illness. (HPI). PHYSICAL EXAMINATION: 33-year-old cooperative male in on acute distress. Vital signs stable: Height 73 inches, weight 61.5 kg. Body mass index (BMI) 16.9, blood pressure 128/68, pulse 68, respirations 17, oxygen sat 95 on room air. The patient is alert and oriented times three. Pupils equal and reactive to light. Extraocular movements intact. Cornea and sclera clear. Conjunctiva normal. No facial asymmetry. Pharynx, tongue, and gums pink and moist. Tongue is midline. Neck is supple, without lymphadenopathy. No thyromegaly. No goiter. Carotids 2+ without bruit. Chest clear to auscultation, without wheeze or retraction. Heart is regular. Abdomen benign. Bowel sounds positive. /Rectal: Not done. Extremities show equal strength. Full range of motion. no cyanosis, clubbing or edema. Peripheral pulses equal and palpable bilaterally. Skin with abrasions on the right forearm, slightly opened. No redness or drainage. IMPRESSION AND PLAN: 1. Psychiatric: Plan per psychiatry. 2. Bacitracin to abrasions twice a day for 7 days. Monitor for infection. 3. Nicotine use: Patch offered. 4. ECG done 02/02/2017, sinus rhythm. Early ST elevation, early repolarization. MTDD
[2018-11-17] MEDS ORDERED: BENZTROPINE 0.5 MG TAB PO PRN (11:30)
--- NOTE | 2018-11-17 11:30 | MHIPNPDOC ---
[facility] Progress Note Progress Note DATE OF SERVICE: 11/17/18 HISTORY OF PRESENT ILLNESS: Patient is a 33-year-old male, who according to ED reports: "Reason for Referral Pt called hotline and expressed SI, has prior psych hx and admissions to [facility]. Chief Complaint Pt has hx of depression, sattes he was at work yesterday and was feeling hopeless "about everything in my life", so he cut self on his arm. Pt was sent home from work and started to drink, called suicide hotline and expressed SI with plans to shoot self or run out into traffic. Pt also stated he was thinking of "suicide by sonoscope operator" for when the Police would respond to his home, adds that he has had several instances of SI in past with thoughts of shooting self. Pt is vague/guarded about stressors, repeats "everything in my life", currently lives alone, has mother nearby for support. Pt denies HI, denies AH/VH, admits to occasional cannabis and usually drinks "a beer after work every day", admits he drank more than usual yesterday due to his depression. Pt quit going to outpt tx, no longer taking medications, c/o poor sleep/concentration. Pt is clinically sober at tgis time, continues to voice feeling depressed/hopeless with SI." Interval History: Says his sleep was improved last night with the increased dose of seroquel and that he feels more rested today. Says his speech is a little "all over the place" after taking the morning zyprexa. Looked at his throat and tongue, no swelling seen, patient denies swelling. Explained was likely an acute dystonia. Agrees to starting Cogentin for dystonia. Denies SI, HI,AVH, paranoia, jesse. Says he feels "alot better" and is agreeable to possible discharge tomorrow. Says he was able to clam himself down after a patient got agitated on the unit disturbing the other patients in the hallway yesterday evening. VITAL SIGNS: See below. NEW TEST RESULTS: See below CURRENT MEDICATIONS: See below. MENTAL STATUS EXAMINATION: General appearance: Patient is a 31-year old male, who is alert, cooperative with interview, with good eye contact, dressed in hospital clothes. Speech: Fluent, spontaneous, not circumstantial and not tangential. Thought processes: Intact. Thought content: cognitive distortions, anxious and depressive thoughts. He doesn't think he wants to go back home, he perseveres about that. He would consider moving to [place] because he thinks there are more opportunities here in [place], he thinks he could get a house with his mother if they buy a house together, the commute would be easier. Abstract reasoning and computation: Fair. Description of associations: Not loose. Description of abnormal or psychotic thoughts: He admits to have auditory hallucinations once in a while and reports hearing a voice calling his name but he is not hearing voices at this time. He denies visual hallucinations, denies homicidal ideation but admits suicidal thoughts. Judgment: Poor. Insight: Limited Orientation: Oriented 3. Recent and remote memory: Intact. Attention span and concentration: Fair Fund of knowledge: Adequate. Mood: "alot better" Affect: mild dysthymia, constricted, irritable, anxious, does smile on occasion DIAGNOSES: 1. Unspecified bipolar disorder. 1. Borderline personality disorder. 2. Alcohol and marijuana use disorder. ASSESSMENT: Today continues to deny racing thoughts, mood is "alot better". P ending possible discharge 11/18/18. Attending groups, good appetite and last night had improved sleep which he believes contributes to improved mood. Continue Seroquel 100 mg PO QHS for sleep. Continue Zyprexa to 5 mgs PO BID, continue venlafaxine 75 mg PO daily, continue him on Abilify 2.5 mgs PO BID. Was counselled again regarding substance use and continues to endorse goal-oriented behavior. Start cogentin 1 mg PO BID for possible acute dystonia. MANAGEMENT PLAN: As above TIME SPENT: 15 minutes. Vital Signs Vital Signs Date Time Temp Pulse Resp B/P (MAP) Pulse Ox O2 Delivery O2 Flow Rate FiO2 11/17/18 06:40 97.6 72 14 138/91 (107) 11/13/18 08:25 Room Air 11/11/18 14:23 96 Current Medications Current Medications Acetaminophen (Tylenol Tab) 650 mg Q6HP PRN PO HEADACHE or DISCOMFORT; Start 11/11/18 at 13:00 Aripiprazole (AbiLIFY) 2.5 mg BID PO Last administered on 11/17/18at 08:17; Start 11/13/18 at 21:00 Bacitracin (Bacitracin Oint) To abraisions on ri... BID TOP Last administered on 11/17/18 08:20; Start 11/12/18 at 21:00 Diphenhydramine HCl (Benadryl) 50 mg Q6HP PRN PO EXTRAPYRAMIDAL SIDE EFFECTS Last administered on 11/17/18at 08:37; Start 11/17/18 at 08:30 Diphenhydramine HCl (Benadryl) 50 mg QHSP PRN PO EXTRAPYRAMIDAL SIDE EFFECTS Last administered on 11/16/18 20:13; Start 11/13/18 at 15:45; Stop 11/17/18 at 08:19; Status DC Folic Acid (Folic Acid) 1 mg DAILY PO Last administered on 11/16/18 08:42; Start 11/10/18 at 09:00; Stop 11/16/18 at 15:08; Status DC Home Med (Med Rec Complete!) ASDIRECTED XX ; Start 11/11/18 at 12:15; Stop 11/11/18 at 12:17; Status DC Ibuprofen (Advil) 400 mg Q6HP PRN PO PAIN; Start 11/11/18 at 13:00; Status Cancel Lorazepam (Ativan) 2 mg ASDIRECTED PRN PO SEE PROTOCOL; Start 11/10/18 at 15:30; Status Cancel Lorazepam (Ativan) 2 mg STAT STAT PO Last administered on 11/12/18at 08:36; Start 11/12/18 at 08:22; Stop 11/12/18 at 08:24; Status DC Magnesium Hydroxide (Milk Of Magnesia) 30 ml DAILYPRN PRN PO CONSTIPATION; Start 11/11/18 at 13:00 Multivitamins (Theragram-M) 1 tab DAILY PO Last administered on 11/16/18 08:41; Start 11/10/18 at 09:00; Stop 11/16/18 at 15:08; Status DC Nicotine (Nicoderm Cq 21mg) 1 patch DAILY TD Last administered on 11/17/18 08:20; Start 11/11/18 at 09:00 Olanzapine (ZyPREXA) 5 mg BID PO Last administered on 11/13/18at 21:05; Start 11/13/18 at 21:00; Stop 11/14/18 at 08:58; Status DC Olanzapine (ZyPREXA) 5 mg BID PO Last administered on 11/17/18 08:20; Start 11/14/18 at 09:00 Olanzapine (ZyPREXA) 5 mg Q6HP PRN PO AGITATION Last administered on 11/16/18at 13:15; Start 11/12/18 at 12:15 Olanzapine (ZyPREXA) 10 mg BID PO ; Start 11/13/18 at 21:00; Stop 11/13/18 at 21:00; Status DC Olanzapine (ZyPREXA) 10 mg QHS PO Last administered on 11/12/18at 21:08; Start 11/12/18 at 21:00; Stop 11/13/18 at 15:05; Status DC Quetiapine Fumarate (SEROquel) 25 mg QHS PO Last administered on 11/13/18at 21:05; Start 11/13/18 at 21:00; Stop 11/14/18 at 14:45; Status DC Quetiapine Fumarate (SEROquel) 50 mg QHS PO Last administered on 11/12/18at 21:09; Start 11/12/18 at 21:00; Stop 11/13/18 at 15:24; Status DC Quetiapine Fumarate (SEROquel) 75 mg QHS PO Last administered on 11/15/18at 21:31; Start 11/14/18 at 21:00; Stop 11/16/18 at 13:08; Status DC Quetiapine Fumarate (SEROquel) 100 mg QHS PO Last administered on 11/16/18at 22:05; Start 11/16/18 at 21:00 Thiamine HCl (Thiamine HCl) 100 mg BID PO Last administered on 11/13/18at 08:59; Start 11/10/18 at 16:00; Stop 11/13/18 at 09:01; Status DC Thiamine HCl (Thiamine HCl) 100 mg BID PO ; Start 11/10/18 at 21:00; Stop 11/10/18 at 21:00; Status DC Trazodone HCl (Desyrel) 50 mg QHSP PRN PO INSOMNIA Last administered on 11/11/18at 22:32; Start 11/11/18 at 13:00; Stop 11/12/18 at 12:29; Status DC Venlafaxine HCl (Effexor) 37.5 mg DAILY PO Last administered on 11/13/18at 08:59; Start 11/12/18 at 09:00; Stop 11/13/18 at 15:03; Status DC Venlafaxine HCl (Effexor) 75 mg DAILY PO Last administered on 11/17/18at 08:19; Start 11/14/18 at 09:00 Allergies Coded Allergies: No Known Allergies (Unverified , 11/10/18) LINDSEY HAIRSTON PGY-1 Nov 17, 2018 11:30
[2018-11-17] MEDS: BENZTROPINE 1 MG TAB PO SCH ×2 (11:51→20:19)
[2018-11-17 18:00] VITALS: BP 141/81
[2018-11-17] MEDS: QUEtiapine FUMARATE 100 MG TAB PO SCH (21:57)
[2018-11-18 06:30] VITALS: BP 117/86
[2018-11-18] MEDS: VENLAFAXINE 37.5 MG TAB PO SCH (08:24)
[2018-11-18] MEDS: BACITRACIN OINT 30GM TOP SCH (08:24)
[2018-11-18] MEDS: PILL CRUSHER/CUTTER 1 EACH XX PRN (08:24)
[2018-11-18] MEDS: OLANZapine 5 MG TAB PO SCH (08:24)
[2018-11-18] MEDS: BENZTROPINE 1 MG TAB PO SCH (08:24)
[2018-11-18] MEDS: NICOTINE 21MG/24HR 1 EA TRANSDERMAL TD SCH (08:25)
[2018-11-18] MEDS ORDERED: BACI50OI TOP (10:23)
[2018-11-18] MEDS ORDERED: ARIP1TAB6 PO (10:23)
[2018-11-18] MEDS ORDERED: OLAN5TAB PO (10:23)
[2018-11-18] MEDS ORDERED: VENL37TA PO (10:23)
[2018-11-18] MEDS ORDERED: BENZ-52 PO (10:23)
[2018-11-18] MEDS ORDERED: NICO21PAT TD (10:23)
[2018-11-18] MEDS ORDERED: QUET1TAB8 PO (10:23)
[2018-11-18] MEDS: OLANZapine 5 MG TAB PO PRN (14:34)
--- NOTE | 2018-11-24 15:50 | MHDSPDOC ---
[facility] Discharge Summary Discharge Summary DATE OF ADMISSION: Nov 11, 2018 at 12:58 DATE OF DISCHARGE: 11/18/18 DISCHARGE DIAGNOSES: REASON FOR ADMISSION: Per Dr Wahl's H and P 11/11/18: "Patient is a 33-year-old male, who according to ED reports: "Reason for Referral Pt called hotline and expressed SI, has prior psych hx and admissions to [facility]. Chief Complaint Pt has hx of depression, states he was at work yesterday and was feeling hopeless "about everything in my life", so he cut self on his arm. Pt was sent home from work and started to drink, called suicide hotline and expressed SI with plans to shoot self or run out into traffic. Pt also stated he was thinking of "suicide by supervisor blueprinting and photocopy" for when the Police would respond to his home, adds that he has had several instances of SI in past with thoughts of shooting self. Pt is vague/guarded about stressors, repeats "everything in my life", currently lives alone, has mother nearby for support. Pt denies HI, denies AH/VH, admits to occasional cannabis and usually drinks "a beer after work every day", admits he drank more than usual yesterday due to his depression. Pt quit going to outpt [place], no longer taking medications, c/o poor sleep/concentration. Pt is clinically sober at time, continues to voice feeling depressed/hopeless with SI."" CONSULTANTS INVOLVED: Medical work-up on floor. TREATMENT AND PROGRESS ON THE UNIT: Patient admitted on a 9.39 involuntary status after being medically cleared from the [facility] ED. CBC,CMP unremarkable, urine toxicology showed cannabinoids and BAL of 0.299. He was counselled regarding alcohol, tobacco and cannabis use. He had also punched hand on wall prior to admission and had hand xray which showed no dislocations or fractures. Bacitracin ointment was place on hand cut. He was re-started on his home medications and was started on abilify 2.5 mg PO BID for mood lability/augmentation which was increased to 5 mg PO BID. Was continued on venlafaxine 75 mg PO daily for mood/anxiety. Was continued on Olanzapine 5 mg PO BID. Was started on seroquel which was titrated up to 100 mg PO QHS. He wanted to remain on this regimen and his mood lability, agitation and anxiety improved during his stay. He reported being suicidal at admission then during stay was no longer suicidal. He attended group and individual therapy sessions. Prior to discharge he wanted to improve and move in with his mother for the time being until he was ready to find new work. HOSPITAL COURSE: See above. DISCHARGE ASSESSMENT: Patient alert and oriented x4, in no acute distress, on discharge denies suicidal ideations or homicidal ideations, denies hallucinations or delusions, denies common or rare medication side effects, denies jesse. States his mood is "good" and was smiling on interview. His hygiene is improved and he is agreeable to discharge stating he is ready to leave. MENTAL STATUS EXAMINATION ON DISCHARGE: General appearance: Patient is a 31-year old male, who is alert, cooperative with interview, with good eye contact, dressed in hospital clothes. Speech: Fluent, spontaneous, not circumstantial and not tangential. Thought processes: Intact. Thought content: Less depression and anxiety. He is moving to [place] because he thinks there are more opportunities here in [place], he thinks he could get a house with his mother if they buy a house together, the commute would be e asier. Abstract reasoning and computation: Fair. Description of associations: Not loose. Description of abnormal or psychotic thoughts: Denies AVH, paranoia, delusions, denies SI/HI. Judgment: improving Insight: Limited Orientation: Oriented 3. Recent and remote memory: Intact. Attention span and concentration: Fair Fund of knowledge: Adequate. Mood: "good" Affect: mild dysthymia, less constricted, less irritable, less anxious, does smile on occasion MEDICATIONS ON DISCHARGE: Scheduled Aripiprazole (Aripiprazole) 5 Mg Tab, 2.5 MG PO BID for MOOD Bacitracin (Bacitracin) 500 Unit/Gm Oin, 0 DOSE TOP BID for SOFT TISSUE INFECTION Benztropine Mesylate (Benztropine Mesylate) 1 Mg Tab, 1 MG PO BID for EXTRTAPYRAMIDAL SIDE EFFECTS Nicotine (Nicotine Patch) 21 Mg/24 Hr Dis, 1 PATCH TD DAILY for NICOTINE CRAVINGS Olanzapine (Olanzapine) 5 Mg Tab, 5 MG PO BID for MOOD Quetiapine Fumarate (Quetiapine Fumarate) 100 Mg Tab, 100 MG PO QHS for MOOD Venlafaxine HCl (Venlafaxine HCl) 37.5 Mg Tab, 75 MG PO DAILY for DEPRESSION PLAN/FOLLOWUP ARRANGEMENTS: Follow Up Care Education Label * Mental Health Appt 1 * Mental Health [facility] * Established With This Provider No * Therapist VALERIE * Date Nov 22, 2018 * Time 09:00 * Address of Clinic or Practice [address] [place] [address] * * Additional information Please remember to bring your insurance card and photo ID. Follow Up Care Education Label * Mental Health Appt 2 * Mental Health [facility] * Established With This Provider No * Therapist KYLE * Date Dec 13, 2018 * Time 13:00 * Address of Clinic or Practice [address] [place] [address] * * Additional information Please remember to bring your insurance card and photo ID. Follow Up Care Education Label * Medical * Medical Follow Up [facility] * Established With This Provider No * Therapist VISH AVERY * Date Nov 30, 2018 * Time 10:30 * Address of Clinic or Practice [address] [place] [address] * * Additional information Please remember to bring your photo ID and insurance card to this visit. Follow Up Care Education Label * Chemical Dependency Appt1 * Chemical Dependency [facility] * Address of Clinic or Practice [address] [place] [address] * Additional information WALK IN HOURS WEDNESDAY THROUGH WEDNESDAY FROM 8AM-4PM Follow Up Care Education Label * Chemical Dependency Appt2 * Chemical Dependency [facility] * Address of Clinic or Practice [address] [place] [address] * Additional information WALK IN HOURS FROM WEDNESDAY THROUGH WEDNESDAY FROM 730-1230 The amount of time spent in the coordination of care for this patient was approximately 25 minutes. Vital Signs/I&Os Vital Signs Date Time Temp Pulse Resp B/P (MAP) Pulse Ox O2 Delivery O2 Flow Rate FiO2 11/18/18 06:30 98.9 110 18 117/86 (96) 11/13/18 08:25 Room Air Medications Scheduled Aripiprazole (Aripiprazole) 5 Mg Tab, 2.5 MG PO BID for MOOD, #7 Bacitracin (Bacitracin) 500 Unit/Gm Oin, 0 DOSE TOP BID for SOFT TISSUE INF ECTION, #1 Benztropine Mesylate (Benztropine Mesylate) 1 Mg Tab, 1 MG PO BID for EXTRTAPYRAMIDAL SIDE EFFECTS, #14 Nicotine (Nicotine Patch) 21 Mg/24 Hr Dis, 1 PATCH TD DAILY for NICOTINE CRAVINGS, #7 Olanzapine (Olanzapine) 5 Mg Tab, 5 MG PO BID for MOOD, #14 Quetiapine Fumarate (Quetiapine Fumarate) 100 Mg Tab, 100 MG PO QHS for MOOD, #7 Venlafaxine HCl (Venlafaxine HCl) 37.5 Mg Tab, 75 MG PO DAILY for DEPRESSION, #14 Allergies Coded Allergies: No Known Allergies (Unverified , 11/10/18) LINDSEY HAIRSTON PGY-1 Nov 18, 2018 12:18
== END 2018-11-18 15:00 | disposition home or self-care (01) | DRG 753 ==
LOC: M ED 14:21 → M ED INP 11-11 12:58 → M PSY 11-11 14:15
PROVIDERS: ADMIT Psychiatry & Neurology Psychiatry; ATTEND Psychiatry & Neurology Psychiatry
DX: F31.9 Bipolar disorder, unspecified (principal); F10.10 Alcohol abuse, uncomplicated; F60.3 Borderline personality disorder; F12.10 Cannabis abuse, uncomplicated; F17.210 Nicotine dependence, cigarettes, uncomplicated; Z62.811 Personal history of psychological abuse in childhood

== ENCOUNTER 2019-07-02 15:01 | Emergency (ER) | payer BC, OTHER ==
[~2019-07-02] VITALS: Ht 182.9 cm; Wt 75.0 kg
[~2019-07-02 15:01] MED LIST changes: +ARIP1TAB6 PO; +BACI50OI TOP; +BENZ-52 PO; +OLAN5TAB PO; +QUET1TAB8 PO; +VENL37TA PO
[2019-07-02] MEDS ORDERED: GABA-843 (15:11)
[2019-07-02] MEDS ORDERED: OLAN2.5T25 (15:11)
[2019-07-02] MEDS ORDERED: NS 1,000 ML IV ONE (16:30)
[2019-07-02] MEDS ORDERED: AMPICILLIN SOD/SULBACTAM SOD 3 GM in D5W MINI-BAG PLUS 100 ML IV ONE (16:30)
[2019-07-02] MEDS ORDERED: KETOROLAC 30 MG/ML VIAL (J1885) IV ONE (16:30)
[2019-07-02 16:49] LABS: BASO % 0.2 % (0.0-1.0); EOS % 0.2 % (0.0-3.0); HEMATOCRIT 48.8 % (42.0-52.0); HEMOGLOBIN 16.2 g/dl (13.5-17.5); MEAN CORPUSCULAR HEMOGLOBIN 31.6 pg (27.0-33.0); MEAN CORPUSCULAR HGB CONC 33.2 g/dl (32.0-36.5); MEAN CORPUSCULAR VOLUME 95.1 fl (80.0-96.0); MONO % 12.3 % (0.0-5.0); NEUTROPHILS % 80.8 % (36.0-66.0); PLATELET COUNT, AUTOMATED 210 10^3/uL (150-450); RED BLOOD COUNT 5.13 10^6/uL (4.30-6.10); WHITE BLOOD COUNT 16.1 10^3/uL (4.0-10.0)
[2019-07-02] MEDS ORDERED: ISOVUE-370 76% 100ML VIAL (Q9967) As Ordered ONE (17:01)
--- NOTE | 2019-07-02 17:28 | REPVR ---
PROCEDURE INFORMATION: Exam: CT Maxillofacial With Contrast Exam date and time: 07/02/2019 5:03 PM Clinical history: 33 years old, male; Mass, lump, or swelling; Maxilla; Additional info: Left dental abscess TECHNIQUE: Imaging protocol: Computed tomography images of the face with intravenous contrast. Radiation optimization: All CT scans at this facility use at least one of these dose optimization techniques: automated exposure control; mA and/or kV adjustment per patient size (includes targeted exams where dose is matched to clinical indication); or iterative reconstruction. Contrast material: ISOVUE 370; Contrast volume: 75 ml; Contrast route: IV COMPARISON: No relevant prior studies available. FINDINGS: Left perimandibular and pre-maxillary facial soft tissue swelling is present. Just superficial to the left maxilla, there is a small organized fluid collection measuring 2.2 cm AP, 5 mm transverse and 2 cm craniocaudal, which is concerning for soft tissue abscess, with underlying bone resorption at the base of the left maxillary second premolar. Mucosal thickening is present in the left maxillary sinus without fluid level. Parapharyngeal and posterior nasopharynx soft tissue planes are maintained. Muscles of mastication, floor of mouth and tongue base soft tissues are symmetric and normal. Small left perimandibular and submandibular lymph nodes are present, asymmetric compared to the normal right side. No evidence of suppurative adenopathy. Parotid and minor salivary glands appear normal. Imaged laryngeal structures are unremarkable. IMPRESSION: Osseous resorption at the base of the left maxillary second premolar, with overlying peripherally enhancing fluid collection suggestive of a periodontal dental abscess with overlying subcutaneous cellulitis. Measurements are given above Reactive lymphadenopathy. Electronically signed by: Johnson Larkin On 07/02/2019 17:27:52 PM
[2019-07-02 17:43] LABS: ERYTHROCYTE SEDIMENTATION RATE 2 mm/hr (0-15)
[2019-07-02] MEDS ORDERED: NORCO, ANEXSIA 5/325MG TABLET (HYDROcodone/ACETAMINOPHEN) PO ONE (18:45)
[2019-07-02] MEDS ORDERED: IBUP80TA PO (18:46)
[2019-07-02] MEDS ORDERED: AUGM875T28 PO (18:46)
[2019-07-02 18:54] VITALS: BP 129/83
== END 2019-07-02 18:56 | disposition home or self-care (01) ==
LOC: M ED 15:01
DX: K04.7 Periapical abscess without sinus (principal); F41.9 Anxiety disorder, unspecified; F33.9 Major depressive disorder, recurrent, unspecified; Z79.899 Other long term (current) drug therapy; F17.210 Nicotine dependence, cigarettes, uncomplicated
CPT/HCPCS: 70487; 80047; 85025; 85652; 86140; 87040; 96365; 96366; 96375; 99284; J1885; Q9967